=== PATIENT | male | born 2005 | race Two or more races ===

== ENCOUNTER → 2025-02-14 | Emergency (ER) | payer OTHER ==
[~2025-02-14] VITALS: Ht 175.3 cm; Wt 70.3 kg
[~2025-02-14] MED LIST: CEFDINIR300 MG PO; CLARINEX5 MG/TAB PO; NASONEX17 GM NS; SINGULAIR10 MG PO; TESSALON PERLE100 M1 PO; TETANUS & DIPHTHERIA TOX,ADULT 0.5 ML VIAL IM STA; ZYRTEC10 MG PO
== END | disposition left against medical advice (07) ==
LOC: ER 18:11
DX: Z53.21 Procedure and treatment not carried out due to patient leaving prior to being seen by health care provider (principal)